=== PATIENT | male | born 1970 | race Asian ===

== ENCOUNTER 2018-05-03 02:21 | Emergency (ER) | payer BC ==
[~2018-05-03] VITALS: Ht 170.2 cm; Wt 69.9 kg
[2018-05-03 02:39] VITALS: Ht 170.2 cm; Wt 69.9 kg
[2018-05-03 03:55] LABS: BASOPHIL % 0.1 % (0-2); PLATELET COUNT 238 x10^3mcL (130-400); RED CELL DISTRIBUTION WIDTH 13.4 % (11.5-14.5)
[2018-05-03 04:20] LABS: CALCIUM 8.8 mg/dL (8.5-10.1); CARBON DIOXIDE 28.3 mmol/L (21-32); CHLORIDE SERUM 106 mmol/L (98-107); GFR1 > 60 mL/min; GLUCOSE SERUM 124 mg/dL (74-106); POTASSIUM SERUM 4.1 mmol/L (3.5-5.1); SODIUM SERUM 142 mmol/L (136-145)
[2018-05-03 04:25] LABS: ALBUMIN 3.8 g/dL (3.4-5.0); ALKALINE PHOSPHATASE 82 U/L (46-116); ALT/SGPT 35 U/L (16-63); AST/SGOT 19 U/L (15-37); BILIRUBIN TOTAL 0.76 mg/dL (0.20-1.00); LIPASE 113 IU/L (73-393)
[2018-05-03 05:25] VITALS: BP 149/92
== END 2018-05-03 05:25 | disposition home or self-care (01) ==
LOC: ED 02:21
PROVIDERS: Emergency Medicine
DX: K52.9 Noninfective gastroenteritis and colitis, unspecified (principal); E86.0 Dehydration
CPT/HCPCS: 36415; J2405; J7030; Q0162